=== PATIENT | female | born 1985 | race Caucasian/White ===

== ENCOUNTER → 2022-04-02 15:00 | Outpatient (CLI) | payer OTHER, SELFPAY ==
--- NOTE | ~2022-04-02 | US_ITS ---
EXAMINATION: US axilla RT INDICATION: Palpable asymmetry in the right axilla TECHNIQUE: Limited ultrasound was performed in the right axilla. COMPARISON: None available FINDINGS: No suspicious cystic or solid mass is identified in the right axilla. There is no sonograph ic correlate for the patient's abnormal clinical examination. IMPRESSION: 1. No specific sonographic correlate is identified for the reported palpable abnormality of concern. Further evaluation at this time should be based on clinical assessment. Continued follow-up physical examination is recommended. Reviewed, dictated and finalized at location A. SSIONS REPRESENTATIVE IMPRESSION: 1. No specific sonographic correlate is identified for the reported palpable ab normality of concern. Further evaluation at this time should be based on clinic al assessment. Continued follow-up physical examination is recommended.
== END ==
PROVIDERS: PCP Nurse Practitioner; Visit Provider Nurse Practitioner
DX: R22.31 Localized swelling, mass and lump, right upper limb (principal)
CPT/HCPCS: 76882